=== PATIENT | male | born 1975 ===

== ENCOUNTER 2020-11-04 15:33 | Emergency (ER) | payer SELFPAY ==
[2020-11-04] MEDS ORDERED: ACETAMINOPHEN 325 MG TAB PO ONE (15:54)
[2020-11-04] MEDS ORDERED: SODIUM CHLORIDE 0.9% 1000 ML 1,000 ML IV ONE (15:57)
--- NOTE | 2020-11-04 16:41 | XRay Report ---
CHEST 2 VIEWS INDICATION: SOB, cough. COMPARISON: None. FINDINGS: Support devices: None. Heart: Within normal limits. Lungs/Pleura: Mild patchy bilateral infiltrate. No significant pleural effusion. IMPRESSION: Bilateral pneumonia. Signer Name: Darwin Lubin MD Signed: 11/04/2020 4:37 PM Workstation Name: [id number]
[2020-11-04] MEDS ORDERED: cefTRIAXone/NS 2 GM/100 ML 2 GM/100 ML BAG IV ONE (17:13)
[2020-11-04] MEDS ORDERED: dexAMETHasone 4 MG/ML VIAL IV ONE (17:13)
[2020-11-04 17:21] LABS: Hematocrit 46.3 % (35.5-45.6); Hemoglobin 15.3 gm/dl (11.8-15.2); Mean Corpuscular HGB Conc 33 % (32-34); Mean Corpuscular Volume 93 fl (84-94); Platelet Count 197 K/mm3 (140-440); Red Blood Count 4.97 M/mm3 (3.65-5.03); Red Cell Distribution Width 13.7 % (13.2-15.2)
[2020-11-04 17:24] LABS: Alanine Aminotransferase 28 units/L (7-56); BUN/Creatinine Ratio 18; Blood Urea Nitrogen 16 mg/dL (9-20); Calcium 8.5 mg/dL (8.4-10.2); Hemolysis Index 12
--- NOTE | 2020-11-04 17:51 | Emergency Department Report ---
- General Chief Complaint: Upper Respiratory Infection Stated Complaint: COVID SYMPTOMS Time Seen by Provider: 11/04/20 17:47 Source: patient, EMS Mode of arrival: Stretcher - History of Present Illness Initial Comments: Language interpretation by sharri Granado Patient is a 44-year-old male presents emergency room with complaints of a cough that began a week ago. He states he also had an episode of epistaxis a week ago but that has since resolved. He states he has shortness of breath, chest discomfort after frequent coughing, decreased appetite. He denies any nausea, vomiting, diarrhea, abdominal pain, hemoptysis, hematochezia, hematemesis, melena. He denies any known sick contacts or recent travel. No past medical history. No allergies to medications. pt is a non smoker - Related Data Previous Rx's Medication Instructions Recorded Last Taken Type Acetaminophen [Tylenol] 650 mg PO Q8HR PRN #30 capsule 11/04/20 Unknown Rx Albuterol Sulfate [Proventil Hfa] 6.7 gm IH TID PRN #1 hfa.aer.ad 11/04/20 Unknown Rx Azithromycin [Zithromax TAB] 250 mg PO QDAY 5 Days #6 tablet 11/04/20 Unknown Rx Dexamethasone 6 mg PO DAILY 10 Days #10 tab 11/04/20 Unknown Rx guaiFENesin ER [Mucinex ER] 600 mg PO BID #14 tablet.er 11/04/20 Unknown Rx Allergies Allergy/AdvReac Type Severity Reaction Status Date / Time No Known Allergies Allergy Unverified 11/04/20 15:43 ED Review of Systems ROS: Stated complaint: COVID SYMPTOMS Other details as noted in HPI Comment: All other systems reviewed and negative ED Past Medical Hx - Past Medical History Previous Medical History?: No - Surgical History Past Surgical History?: No - Social History Smoking Status: Never Smoker - Medications Home Medications: Home Medications Medication Instructions Recorded Confirmed Last Taken Type Acetaminophen [Tylenol] 650 mg PO Q8HR PRN #30 capsule 11/04/20 Unknown Rx Albuterol Sulfate [Proventil Hfa] 6.7 gm IH TID PRN #1 hfa.aer.ad 11/04/20 Unknown Rx Azithromycin [Zithromax TAB] 250 mg PO QDAY 5 Days #6 tablet 11/04/20 Unknown Rx Dexamethasone 6 mg PO DAILY 10 Days #10 tab 11/04/20 Unknown Rx guaiFENesin ER [Mucinex ER] 600 mg PO BID #14 tablet.er 11/04/20 Unknown Rx ED Physical Exam - General Limitations: No Limitations General appearance: alert, in no apparent distress - Head Head exam: Present: atraumatic, normocephalic - Eye Eye exam: Present: normal appearance - ENT ENT exam: Present: mucous membranes moist - Respiratory Respiratory exam: Present: normal lung sounds bilaterally. Absent: respiratory distress, wheezes, rales, rhonchi, stridor, chest wall tenderness, accessory m uscle use, decreased breath sounds, prolonged expiratory - Cardiovascular Cardiovascular Exam: Present: regular rate, normal rhythm, normal heart sounds. Absent: systolic murmur, diastolic murmur, rubs, gallop - Neurological Exam Neurological exam: Present: alert, oriented X3 - Psychiatric Psychiatric exam: Present: normal affect, normal mood - Skin Skin exam: Present: warm, dry, intact ED Course Vital Signs 11/04/20 11/04/20 11/04/20 15:45 16:01 17:06 Temperature 103.0 F H Pulse Rate 114 H 98 H Respiratory 18 18 Rate Blood Pressure 133/79 113/68 O2 Sat by Pulse 95 95 Oximetry 11/04/20 18:43 Temperature Pulse Rate 102 H Respiratory Rate Blood Pressure 115/74 O2 Sat by Pulse 96 Oximetry ED Medical Decision Making - Lab Data Result diagrams: 11/04/20 16:17 11/04/20 16:17 Vital Signs 11/04/20 11/04/20 11/04/20 15:45 16:01 17:06 Temperature 103.0 F H Pulse Rate 114 H 98 H Respiratory 18 18 Rate Blood Pressure 133/79 113/68 O2 Sat by Pulse 95 95 Oximetry Lab Results 11/04/20 11/04/20 11/04/20 Range/Units 16:17 16:17 16:17 WBC 8.0 (4.5-11.0) K/mm3 RBC 4.97 (3.65-5.03) M/mm3 Hgb 15.3 H (11.8-15.2) gm/dl Hct 46.3 H (35.5-45.6) % MCV 93 (84-94) fl MCH 31 (28-32) pg MCHC 33 (32-34) % RDW 13.7 (13.2-15.2) % Plt Count 197 (140-440) K/mm3 Seg Neutrophils % [employer] Sodium 142 (137-145) mmol/L Potassium 4.3 (3.6-5.0) mmol/L Chloride 105.2 (98-107) mmol/L Carbon Dioxide 24 (22-30) mmol/L Anion Gap 17 mmol/L BUN 16 (9-20) mg/dL Creatinine 0.9 (0.8-1.3) mg/dL Estimated GFR > 60 ml/min BUN/Creatinine Ratio 18 % Glucose 110 H (75-100) mg/dL Lactic Acid 1.60 (0.7-2.0) mmol/L Calcium 8.5 (8.4-10.2) mg/dL Total Bilirubin 0.30 (0.1-1.2) mg/dL AST 36 (5-40) units/L ALT 28 (7-56) units/L Alkaline Phosphatase 97 (35-129) units/L Total Protein 7.0 (6.3-8.2) g/dL Albumin 4.0 (3.9-5) g/dL Albumin/Globulin Ratio 1.3 % - Radiology Data Radiology results: report reviewed Ordering Physician: ADAMA ARCEO Date of Service: 11/04/20 Procedure(s): XR chest routine 2V Accession Number(s): [id number] cc: ADAMA ARCEO Fluoro Time In Minutes: CHEST 2 VIEWS INDICATION: SOB, cough. COMPARISON: None. FINDINGS: Support devices: None. Heart: Within normal limits. Lungs/Pleura: Mild patchy bilateral infiltrate. No significant pleural effusion. IMPRESSION: Bilateral pneumonia. Signer Name: Darwin Lubin MD Signed: 11/04/2020 4:37 PM Workstation Name: [id number] Transcribed By: ES Dictated By: Darwin Lubin MD Electronically Authenticated By: Darwin Lubin MD Signed Date/Time: 11/04/20 163 DD/ 35 TD/TT: - Medical Decision Making Language interpretation by sharri Granado Patient is a 44-year-old male presents emergency room with complaints of a cough that began a week ago. He states he also had an episode of epistaxis a week ago but that has since resolved. He states he has shortness of breath, chest discomfort after frequent coughing, decreased appetite. He denies any nausea, vomiting, diarrhea, abdominal pain, hemoptysis, hematochezia, hematemesis, melena. He denies any known sick contacts or recent travel. No past medical history. No allergies to medications. pt is a non smoker. Initial vitals with fever and tachycardia which improved upon repeat. Breath sounds are clear bilaterally on exam, no wheezing, no rales, no rhonchi. Labs are normal. Chest x-ray IMPRESSION: Bilateral pneumonia. Patient given Tylenol, 1 L IV fluids, ceftriaxone, azithromycin, dexamethasone. Patient was ambulated while in the emergency department and maintained oxygen saturations of 93% or higher on room air. Discussed case with Dr. Kvng Jaramillo who states that patient can be discharged home with a Z-Babatunde and Decadron for 10 days. Discussed very strict return precautions with patient. Advised patient please take medication as prescribed. Please increase your fluid intake over the next several days. Follow-up with a primary care doctor for reexamination. Return to emergency room immediately for any new or worsening symptoms including but not limited to difficulty breathing, shortness of breath, severe chest pain, unable to tolerate by mouth intake, etc. Please self quarantine for 10 days from the onset of your symptoms. Please do not go out in public. If you are around others at home please wear a mask. If you need to cough or sneeze please do so in a napkin and immediately throw it away and immediately wash your hands. Wash your hands frequently. Wipe everything down. Recommend for you to get COVID-19 testing, may have this done at primary care doctor, health department, [facility], etc. Critical care attestation.: If time is entered above; I have spent that time in minutes in the direct care of this critically ill patient, excluding procedure time. ED Disposition Clinical Impression: Suspected COVID-19 virus infection Bilateral pneumonia Qualifiers: Pneumonia type: due to unspecified organism Lung location: unspecified part of lung Qualified Code(s): J18.9 - Pneumonia, unspecified organism Disposition: - TO HOME OR SELFCARE Is pt being admited?: No Does the pt Need Aspirin: No Condition: Stable Instructions: COVID-19 Frequently Asked Questions, COVID-19, COVID-19: How to Protect Yourself and Others - CDC, Bacterial Pneumonia (ED) Additional Instructions: please take medication as prescribed. Please increase your fluid intake over the next several days. Follow-up with a primary care doctor for reexamination. Return to emergency room immediately for any new or worsening symptoms including but not limited to difficulty breathing, shortness of breath, severe chest pain, unable to tolerate by mouth intake, etc. Please self quarantine for 10 days from the onset of your symptoms. Please do not go out in public. If you are around others at home please wear a mask. If you need to cough or sneeze please do so in a napkin and immediately throw it away and immediately wash your hands. Wash your hands frequently. Wipe everything down. Recommend for you to get COVID-19 testing, may have this done at primary care doctor, health department, [facility], etc. por favor tome la medicacin segn lo prescrito. Aumente la ingesta de lquidos bar los prximos downs. Travon un seguimiento con un mdico de atencin primaria para un nuevo examen. Regrese a la sulema de emergencias de inmediato si tiene sntomas nuevos o que empeoran, incluidos, entre otros, dificultad para respirar, falta de aliento, dolor de pecho marcela, incapacidad para tolerar la ingestin oral, etc. Por favor, pngase en cuarentena bar 10 downs desde el inicio de malcolm sntomas. Por favor, no salga en pblico. Si est con otras personas en casa, use celena mscara. Si necesita toser o estornudar, hgalo en celena servilleta, deschela inmediatamente y lvese las vargas inmediatamente. Lvese l as vargas con frecuencia. Limpia todo. Recomendarle hacerse la prueba de COVID- 19, puede hacerlo en el mdico de atencin primaria, el departamento de [facility], [facility], etc. Prescriptions: Dexamethasone 6 mg PO DAILY 10 Days #10 tab guaiFENesin ER [Mucinex ER] 600 mg PO BID #14 tablet.er Albuterol Sulfate [Proventil Hfa] 6.7 gm IH TID PRN #1 hfa.aer.ad PRN Reason: Shortness Of Breath Acetaminophen [Tylenol] 650 mg PO Q8HR PRN #30 capsule PRN Reason: fever/body aches Azithromycin [Zithromax TAB] 250 mg PO QDAY 5 Days #6 tablet Referrals: PRIMARY CAREMD [Primary Care Provider] - 2-3 Days MACARIO VALDES MD [Staff Physician] - 2-3 Days [facility] [Provider Group] - 2-3 Days Time of Disposition: 18:42 Print Language: BANGLADESHI
[2020-11-04] MEDS ORDERED: AZITHROMYCIN 500 MG in SODIUM CHLORIDE 0.9% 250ML 250 ML IV ONE (18:00)
[2020-11-04 18:45] VITALS: BP 115/74
[2020-11-04 22:13] LABS: Total Cells Counted 100
[2020-11-04 22:14] LABS: Ovalocytes Rare; Platelet Estimate Consistent w Auto
== END 2020-11-04 19:31 | disposition home or self-care (01) ==
LOC: ED 15:33
DX: J18.9 Pneumonia, unspecified organism (principal); Z79.899 Other long term (current) drug therapy; Z20.828 Contact with and (suspected) exposure to other viral communicable diseases
CPT/HCPCS: 36415; 71046; 80053; 82140; 85007; 85025; 87040; 96361; 96365; 96366; 96368; 96375; 99284; J0456; J0696; J1100; J7030; J7050